=== PATIENT | male | born 1965 | race Caucasian/White ===

== ENCOUNTER 2020-08-04 18:28 | Emergency (ER) | payer BC, OTHER ==
[~2020-08-04] VITALS: Ht 172.7 cm; Wt 75.3 kg
[2020-08-04] MEDS ORDERED: MORPHINE SULFATE 4 MG/ML, 1ML IVPush ONE (19:00)
[2020-08-04] MEDS ORDERED: ONDANSETRON 2MG/ML, 2ML IVPush ONE (19:00)
[2020-08-04] MEDS ORDERED: ONDANSETRON 2MG/ML, 2ML ONE (19:52)
[2020-08-04] MEDS ORDERED: PROPOFOL 10 MG/ML, 20ML ONE (19:52)
[2020-08-04] MEDS ORDERED: MORPHINE SULFATE 4 MG/ML, 1ML ONE (19:53)
--- NOTE | 2020-08-04 19:59 | NUR ---
PT TRANSFERED TO [facility] FOR SEDATION AND ORTHOPEDIC REDUCTION. NO REPORT FROM RECIEVEING RN. PT AND HISTORIANS. PIV PLACED AND PT MEDICATED FOR PAIN. 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 CONSENT SIGNED AND ADDED TO PAPER CHART. PT EDUCATED ON PROCEDURE, AL QUESTIONS ANSWERED. PT STATES HE HAS HAD TO BE SEDATION FOR ORTHO REDUCTION IN THE PAST.
[2020-08-04] MEDS ORDERED: PROPOFOL 10 MG/ML, 20ML IVPush ONE (20:00)
--- NOTE | 2020-08-04 20:19 | NUR ---
XRAY AT BEDSIDE
--- NOTE | 2020-08-04 20:30 | NUR ---
PT RETURNED TO [facility] WITH STABLE VITALS. NO SUPP O2. PT RESTING AND VERBALIZED RELIEF OF PAIN
[2020-08-04 20:42] VITALS: BP 131/74
--- NOTE | 2020-08-04 20:44 | NUR ---
SEE PAPERCHART FOR INTRAPROCEDURAL NOTES AND VITAL SIGNS. 90 MG OF PROPOFOL USED BY DR WHITTINGTON AND 110 MG WASTED IN MED ROOM WITH TOÑO PRICE A WITNESS.
== END 2020-08-04 21:17 | disposition home or self-care (01) ==
LOC: ED 20:05
DX: S43.004A Unspecified dislocation of right shoulder joint, initial encounter (principal); W18.30XA Fall on same level, unspecified, initial encounter; Y93.39 Activity, other involving climbing, rappelling and jumping off; Y92.828 Other wilderness area as the place of occurrence of the external cause; Y99.8 Other external cause status
CPT/HCPCS: 23650; 73020; 73030; 96374; 96375; 99285; J2270; J2405